=== PATIENT | female | born 1990 | race Caucasian/White ===

== ENCOUNTER 2017-03-28 12:33 | Emergency (ER) | payer MEDICAID ==
[~2017-03-28] VITALS: Ht 170.2 cm; Wt 56.8 kg
[2017-03-28 12:36] VITALS: BP 142/97; PULSE 77; RESP 20; O2SAT 96
--- NOTE | 2017-03-28 12:43 | ED.REPORT ---
HPI-Extremity Problem Upper Date of Service March 28, 2017 ED Provider: History of Present Illness: 26-year-old female here for right fifth digit laceration. 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 She sustained a 1 cm laceration on her lateral fifth digit near the base of the digit. Unknown last tetanus. BLeeding is controlled. Nursing Notes Stated Complaint: FINGER LACERATION Chief Complaint: Laceration Nursing Notes Reviewed: Yes Allergies: Coded Allergies: No Known Allergies (Unverified , 03/28/17) General Time Seen by MD: 12:43 Chief Complaint Finger injury right 5 lac Hx Obtained From: Patient Arrived By: Walk-in Onset Occurred: Just prior to arrival Symptom Duration: Since onset Caused by: Accidental Context: Occurred at: Home injury Location: : Finger right 5 Severity: Current: Mild Severity: Maximum: Mild Pertinent Negative: Pt denies other symptoms Exacerbated by: Range of motion Immunizations: Unknown Recent Healthcare: No recent doctor visit Similar Sx Previous: No Past Medical History Past Medical History Notes: denies Review of Systems Basic Review of Systems Eyes: Vision NL, No discharge ENT: Hearing NL, No pain, No nasal congestion, No pharyngeal pain GI: No abdominal pain, No anorexia, No nausea, No vomiting Hematologic: No bleeding, No bruising Allergy / Immune: No allergy Psychiatric: Normal thought content Constitutional: Denies: Chills, Fatigue, Fever Musculoskeletal: Reports: Extremity pain Complete sys rev & neg: except as marked. Physical Exam Initial Vital Signs Vital Signs (First) Date Time Temp Pulse Resp B/P Pulse Ox O2 Delivery O2 Flow Rate FiO2 03/28/17 12:36 36.2 77 20 142/97 96 Room Air Initial VS: Reviewed, Vital signs normal General/Constitutional: Well-developed, Well-nourished Head / Eyes: Atraumatic, Normocephalic, PERRL ENT: Mucous membranes moist, Conjunctiva normal, No scleral icterus Respiratory: Breath sounds normal, Clear to auscultation, No respiratory distress Cardiovascular: Regular rate & rhythm, Heart sounds normal, Intact distal pulses Skin: Warm, Dry, No cyanosis Neurologic: Alert, Oriented, Nonfocal Psychiatric: Mood/affect normal, Behavior normal, Normal thought content Rash / Lesion Notes: 1 cm lac at base of R 5th digit, lateral aspect. superficial, not bleeding. has FROM of digit above and below lac Rash / Lesion Location: Positive: Hand R Procedures Procedure Notes: Cleansed with wound cleaning solution, Steri-Strips placed. Finger splint applied to keep straight. Discharge & Departure Shift Change Sign-Out Discussed Complaint(s): Yes Response to Therapy: Improved Impression: Primary Impression: Laceration Disposition: Home Patient Instructions: Finger Laceration (ED) Additional Instructions: Keep wound clean and dry, no soaking for 24 hours. The Steri-Strips will fall off on their own. Watch for signs of infection including redness, purulent drainage, increased swelling or pain and return immediately if these occur. Otherwise wear finger splint for the next 2-3 days. Follow-up here as needed EDSupervising Provider for APC: Alisson Wall MD, Linnea K ARNP March 28, 2017 12:43
[2017-03-28] MEDS ORDERED: TdaP Vaccine 0.5 mL Inj IM ONE (12:50)
== END 2017-03-28 13:30 | disposition home or self-care (01) ==
LOC: SED 12:33
DX: S61.216A Laceration without foreign body of right little finger without damage to nail, initial encounter (principal); W25.XXXA Contact with sharp glass, initial encounter; Y92.000 Kitchen of unspecified non-institutional (private) residence as the place of occurrence of the external cause; Y93.G1 Activity, food preparation and clean up; Y99.8 Other external cause status; Z23 Encounter for immunization